=== PATIENT | female | born 1935 | race Caucasian/White ===

== ENCOUNTER → 2016-09-15 | Outpatient (CLI) | payer OTHER ==
[~2016-09-15] MED LIST: AMBIEN PO; AMBIEN10 MG PO; AMLODIPINE BES2.5 MG PO; CLOPIDOGREL BIS75 MG PO; CLOPIDOGREL75 MG PO; COLACE50 MG PO; FIBER500 MG PO; GNP B-COMPLEX1 EACH PO; HYDROCHLOROTHIA25 MG PO; HYDROCODON-ACE1 EACH PO; LISINOPRIL10 MG PO; LOPRESSOR PO; LORTAB 7.5-5001 TAB PO; METOPROLOL SUCC25 MG PO; MULTIVITAMIN W-1 TAB PO; MYSOLINE50 M1 PO; NASONEX17 GM; SENNA-S TABLE1 UDTAB PO; STOOL SOFTENER1 EAC1 PO; SUPER B COMPLEX1 CAP PO; SYNTHROID PO; SYNTHROID88 MCG PO; TOPROL XL50 MG PO; VITAMIN B12-FO1 EACH PO; VITAMIN D-32000 UNI2 PO; VITAMIN D50000 UNIT PO; ZYRTEC10 M2 PO
--- NOTE | ~2016-09-15 | BD1 ---
[facility] RADIOLOGY TEXT RESULTS PATIENT: IGNACIO TAPIA LOCATION: [facility] : 37 UNIT #: [id number] AGE: [address]: AMANDA IBRAHIM SEX: F ORDER DR: [id number] [facility] [address] [place], [place] [address] [id number] O MR#: [id number] Acc #: [id number] NAME: IGNACIO TAPIA : 1935 SEX: F STUDY DATE/TIME: 09/15/2016 11:52 UNIT: [facility] ROOM: STUDY DESCRIPTION: BD Dexa Bone Dens 1+ Site Attending Physician: Olena Ibrahim M.D. Ordering Physician: Liam Not Listed Primary Care Physician: Olena Ibrahim M.D. MEDICAL IMAGING REPORT This report is preliminary unless electronic signature is present EXAM DXA scan 09/15/2016 HISTORY Status post menopause with no hormone replacement therapy. Osteopenia and arthritis. Levothyroxine use for 15 years. FINDINGS Bone mineral density in the lumbar spine from L1-L4 was 1.002 g/cm2, which is 0.4 standard deviation below the mean when compared to the young adult reference population, which is within the range of normal. This is 2.3 standard deviations above the mean when compared to the age-matched population. Bone mineral density in the left hip was 0.786 g/cm2, which is 1.3 standard deviations below the mean when compared to the young adult reference population, which is characteristic of osteopenia. This is 0.8 standard deviations above the mean when compared to the age-matched population. IMPRESSION Bone mineral density in the lumbar spine within the range of normal and within the left hip characteristic of osteopenia. Dictated by... Tristin Martin M.D. THIS IS AN ELECTRONICALLY VERIFIED REPORT Tristin Martin M.D. at 09/16/2016 5:35 PM JULIANA/betty TD: 09/16/2016 12:38 [facility] RADIOLOGY TEXT RESULTS PATIENT: IGNACIO TAPIA LOCATION: [facility] : 37 UNIT #: [id number] AGE: [address]: AMANDA IBRAHIM SEX: F ORDER DR: JUANITA #: [id number] MEDICAL IMAGING REPORT Page 1 of 1 COPY
== END | disposition home or self-care (01) ==
LOC: CWCC 11:08
DX: Z13.820 Encounter for screening for osteoporosis (principal); M19.90 Unspecified osteoarthritis, unspecified site; E55.9 Vitamin D deficiency, unspecified; Z78.0 Asymptomatic menopausal state; M85.88 Other specified disorders of bone density and structure, other site
CPT/HCPCS: 77080